=== PATIENT | female | born 1945 | race Caucasian/White ===

== ENCOUNTER 2018-08-19 11:01 | Inpatient (IN) ==
--- NOTE | 2018-08-19 11:43 | Diag Imaging Result Doc PS360 ---
EXAM: CHEST-1 VIEW HISTORY: junctional rhythm TECHNIQUE: Single view COMPARISON: None 05/17/2016 FINDINGS: The lungs are well expanded. The heart is mildly prominent. The vessels are not distended. There are no infiltrates. No effusion identified. IMPRESSION: Mildly prominent heart, otherwise negative exam Electronically signed by Abdiaziz Cantor 08/19/2018 11:41 AM
[2018-08-19 11:58] LABS: BASO# 0.08 X1000 (0.0-0.2); BASO% 0.7 % (0.0-0.8); EOS# 0.07 X1000 (0.0-0.7); EOS% 0.6 % (0.0-10.0); HEMATOCRIT 38.2 % (37.0-47.0); IMM GRAN# 0.06 X1000 (0.0-0.04); IMM GRAN% 0.5 % (0.0-0.5); LYMPH# 2.49 X1000 (1.2-3.4); LYMPH% 21.9 % (20.5-51.1); MCH 27.7 PG (27-31); MCHC 31.4 g/dL (33-37); MCV 88.2 FL (81-99); MONO# 0.43 X1000 (0.11-0.59); MONO% 3.8 % (1.7-9.3); MPV 10.8 FL (7.4-10.4); NEUT# 8.25 X1000 (1.4-6.5); NEUT% 72.5 % (42.2-75.2); PLT 249 X1000 (130-400); RBC 4.33 XMIL (4.2-5.4); RDW 16.7 % (11.5-14.5); WBC 11.38 X1000 (4.8-10.8)
[2018-08-19 12:02] LABS: INR 1.88; PROTIME 23.1 Seconds (11.0-16.0)
[2018-08-19 12:23] LABS: ALB/GLOB RATIO 1.2; ALBUMIN 3.5 g/dL (3.5-5.0); CREATININE 1.1 mg/dL (0.5-0.9); MAGNESIUM 1.8 mg/dL (1.5-2.7); POTASSIUM 4.4 mmol/L (3.5-5.1); TOTAL BILIRUBIN 0.34 mg/dL (0.20-1.00); TOTAL PROTEIN 6.4 g/dL (6.3-8.3)
[2018-08-19] MEDS ORDERED: ZOFRAN IV PRN (13:04)
[2018-08-19 13:33] LABS: T4 6.15 ug/dL (4.60-12.00); TSH 2.24 uIUmL (0.27-4.20)
[2018-08-19] MEDS: NS 1,000 ML IV SCH (15:56)
[2018-08-19 16:25] LABS: HEMOGLOBIN A1C 6.6 % (4.8-6.0)
[2018-08-19 16:40] LABS: URINE SOURCE CLEAN CATCH
[2018-08-19 16:48] LABS: BILIRUBIN URINE NEGATIVE (NEGATIVE); BLOOD URINE NEGATIVE (NEGATIVE); COLOR YELLOW; GLUCOSE URINE NEGATIVE (NEGATIVE); KETONE URINE NEGATIVE (NEGATIVE); LEUKOCYTES URINE SMALL (NEGATIVE); NITRITE URINE NEGATIVE (NEGATIVE); PH URINE 5.5; PROTEIN URINE NEGATIVE (NEGATIVE); SP GRAVITY URINE 1.002; TURBIDITY URINE CLEAR (CLEAR); UR EPITHELIAL CELLS <10 /HPF (<10); URINE BACTERIA 1+ /HPF; URINE RBC <10 /HPF (<10); URINE WBC <10 /HPF (<10); UROBILINOGEN URINE NORMAL (NORMAL)
[2018-08-19] MEDS: MIRAPEX PO SCH (16:48)
--- NOTE | 2018-08-19 18:53 | HISTORY AND PHYSICAL ---
PRIMARY CARE PROVIDER: Dr. Benitez. PRIMARY CONCRETE STONE FABRICATING SUPERVISOR: Dr. Stewart. CHIEF COMPLAINT: Near syncopal or nearly passing out spells. HISTORY OF PRESENT ILLNESS: Ms. Nimo Daigle is a 72-year-old, female with a medical history of A-fib and flutter since 2013 who apparently has been having some light-headed, dizzy, nearly passing out spells where she has to sit on the floor. Her last one was last Tuesday, so on Tuesday she was placed on a portable telemetry or Holter monitor by Dr. Stewart. This past Tuesday, she was called and told to stop her digoxin, that her heart rate was slowing down and if her heart rate dropped to less than 40 and maintained at this, to go to the Emergency Department. So she presented today with a heart rate in the 30s and apparently 20s as well, but she was continuing to take her Toprol 100 mg p.o. daily. Blood pressure is stable. We are going to put her on telemetry, hold the Toprol for now. We are also going to hold her flecainide and transfer her to [facility] and consult Dr. Stewart, her appraiser timber. PAST MEDICAL HISTORY: 1. Fibromyalgia. 2. History of right breast cancer and double mastectomy. 3. Wellington's esophagus. 4. Esophageal stricture with dilatation. 5. GERD. 6. Hypertension. 7. Obstructive sleep apnea with CPAP and 2 liters of oxygen at night. 8. Arthritis. 9. Restless leg syndrome. 10.Hyperlipidemia. 11.Diabetes mellitus type 2. 12.Leukemia; only takes a pill for that. Dr. Wadsworth from [facility] in [place] follows her for that. She states no chemotherapy, no radiation. 13.Atrial fibrillation and flutter since 2013. PAST SURGICAL HISTORY: 1. Esophageal dilatation. 2. Bilateral mastectomies. 3. Hysterectomy. 4. Right knee total knee replacement. 5. Left knee partial knee replacement. SOCIAL HISTORY: Denies alcohol, tobacco or illicit drug use. FAMILY HISTORY: Mother had an unknown cancer. Father had coronary disease and stroke. ALLERGIES: Glucocorticoids, influenza vaccine, sulfa drugs and antibiotics. HOME MEDICATIONS: 1. Coumadin 2.5 mg p.o. nightly. 2. Pravastatin 40 mg p.o. nightly. 3. Calcium 1200 mg with vitamin D3, one tab p.o. daily. 4. Cymbalta 90 mg p.o. daily. 5. Glimepiride 2 mg p.o. daily. 6. Letrozole 2.5 mg p.o. daily. 7. Lyrica 225 mg p.o. twice daily. 8. Pramipexole 1 mg p.o. t.i.d. 9. Flecainide 150 mg p.o. twice daily. 10.Toprol XL 100 mg p.o. daily. REVIEW OF SYSTEMS: A 14-point review of systems are completed and all are negative except as mentioned above in HPI. She has complained of some lower extremity swelling, chest heaviness, feeling weaker but denies fever or chills, nausea, vomiting or diarrhea. PHYSICAL EXAMINATION: VITAL SIGNS: Temperature 97.5 degrees, heart rate 49 but when I looked at it on the monitor, it was around 99 and low 100s. Respiratory rate 20, blood pressure 153/63, oxygen saturation 97%. She had orthostatic vitals performed: supine heart rate 49, blood pressure 153/63; sitting heart rate 40, blood pressure 139/74; and standing heart rate 64 and blood pressure 133/92. GENERAL: Ms. Nimo Daigle is a 72-year-old female. She is in no acute distress. She is able to answer questions appropriately. HEENT: Atraumatic, normocephalic. Pupils equal, round and reactive to light. Extraocular movements intact. Mucous membranes are dry. NECK: Trachea is midline. CARDIOVASCULAR: Irregularly irregular. At the time of assessment, it was tachycardic most likely keep documenting a bradycardic rhythm or rate. No lower extremity edema. There are +2 dorsalis pedis and radial pulses. Negative for JVD or carotid bruits. PULMONARY: Clear to auscultate. Bilateral breath sounds. No accessory muscle use or work of breathing noted. GI: Soft, nontender, nondistended. Positive bowel sounds x 4. EXTREMITIES: Moves all extremities equally. Full range of motion. NEUROLOGICAL: Alert and oriented x 3. Follows commands. Sensory is intact. SKIN: Warm, dry and intact. LABORATORY DATA: White blood cell count 11,000, hemoglobin 12, hematocrit 38, platelet count 249. INR is 1.88. Sodium 145, potassium 4.4, BUN 14, creatinine 1.1, glucose 247, then point of care glucose was 63. Hemoglobin A1C has been ordered. Calcium 9.0, magnesium 1.8, total bilirubin 0.34, AST 27, ALT 19. Troponin less than 0.01. CRP is 29.86. ProBNP is 4304. Albumin 3.4. TSH 2.24, T4 is 6.15. Digoxin level is 0.6. IMAGING: Chest x-ray: Mildly prominent heart, otherwise negative exam. EKG has not crossed over into the computer yet; it was reported as a junctional rhythm. We will have to review that. ASSESSMENT AND PLAN: 1. Atrial fibrillation with bradycardic rate, possibly junctional rhythm, but on the telemetry, the rhythm pulled up and the rate was 90 to low 100s and still irregular with A-fib. Blood pressure is stable with it. Apparently she was on digoxin but had to stop that last Tuesday. We will hold her Toprol for now and hold flecainide for now. Dr. Stewart, her appraiser timber, has been consulted. 2. Diabetes mellitus type 2. We will do patterned blood glucoses and give sliding-scale insulin. She is only on oral medications. We will get a hemoglobin A1C. 3. She states she has a history of leukemia and is followed by Dr. Wadsworth at [facility] in [place]. She says she takes a pill for it. I am not sure what the medication is though, because I do not think it is listed on her medication list. 4. Obstructive sleep apnea, on CPAP at home. She can continue that. She also uses 2 liters of oxygen with it. 5. Elevated ProBNP. She actually complains of swelling in the lower extremities but she does not show any there. She also does not show any obvious jugular venous distention. We will get an echocardiogram just to evaluate her heart function. Her last echocardiogram was in 2017 in our system and she had some borderline pulmonary hypertension with a systolic of 33 mmHg. There was no diastolic dysfunction. She had great left ventricular systolic function at that time. 6. Hypertension. She is stable on her blood pressure at this time. We will have to monitor her blood pressure for now along with heart rate flow. 7. DVT prophylaxis. She takes Coumadin; we will resume that. Dictated by ADRIENNE Riddle for MD Abel Mccullough#: [id number] cc: ADRIENNE Riddle MD [facility]
[2018-08-19] MEDS: PRAVACHOL PO SCH (20:12)
[2018-08-19] MEDS: COUMADIN PO SCH (20:12)
[2018-08-19] MEDS: LYRICA PO SCH (20:12)
[2018-08-19] MEDS: HUMULIN R SUBQ SCH (20:21)
--- NOTE | 2018-08-20 00:23 | HISTORY AND PHYSICAL ---
ADDENDUM: Ms. Daigle presented to the emergency department today after she was notified by her cardiac monitoring services that her blood pressures have been remarkably low from the beginning of the week. She was told to discontinue the digoxin. Later on also was told to stop taking the metoprolol because her pulse was somewhere around in the 20. Ms Daigle refers that for the past week she has been having near syncopal episode. A week ago she did have 1 syncopal episode where she fell down, lost some consciousness but that was quite immediate. The narration of the syncope seems to have some premonition symptoms including generalized weakness, whooshing of the head with dizziness, tunnel vision and she has to go and sit down otherwise she will blackout. Her physical exams reveal the blood pressure was 127/63, pulse was 49, respiration was 18, patient was saturating about 96%. She looks remarkably dry and her heart rate seems to be regular but with occasional extrasystolic beats. EKG on admission did show a junctional rhythm with a rate of about 43, a repeat continues to show junctional rhythm but with PACs and PVCs. A chest x-ray showed prominent heart otherwise negative, vessels are not distended. ASSESSMENT: 1. Syncopal episode with multiple other near syncopal episodes. I think this is probably related to orthostatic hypotension with cardioinhibitory response which has been probably compounded by the fact that she is on AV rosio blocking agents. Cardiac syncope is also a possibility due to her hx of cardiac arrhythmias. Cardiac medications have been withheld. We are going to check patient's orthostatic vitals and hydrate her gently over the overnight and reevaluate her hydration status. 2. Clinical volume depletion see #1. 3. Acute kidney injury secondary to volume depletion. 4. History of atrial fibrillation. The patient is on metoprolol, digoxin and flecainide at home. These have been withheld for now due to severe bradycardia. 5. Diabetes mellitus. Will use insulin regimen during the hospital course. 6. Restless legs syndrome on pramipexole. 7. Situational anxiety and depression disorder, patient is on Cymbalta. 8. History of obstructive sleep apnea. Patient is on CPAP at home. We have encouraged her to bring it into the hospital. Please refer to the details of H and P dictated in the notes by the nurse practitioner. Will also be pending further recommendations from Cardiology. cc: Dinesh Matias MD MTDD
[2018-08-20] MEDS: NS 1,000 ML IV SCH ×2 (05:12→17:42)
[2018-08-20 06:30] LABS: BASO# 0.04 X1000 (0.0-0.2); BASO% 0.4 % (0.0-0.8); EOS# 0.17 X1000 (0.0-0.7); EOS% 1.5 % (0.0-10.0); HEMATOCRIT 37.4 % (37.0-47.0); HEMOGLOBIN 11.8 g/dL (12.0-16.0); IMM GRAN# 0.05 X1000 (0.0-0.04); IMM GRAN% 0.4 % (0.0-0.5); LYMPH# 3.24 X1000 (1.2-3.4); LYMPH% 28.7 % (20.5-51.1); MCHC 31.6 g/dL (33-37); MCV 88.8 FL (81-99); MONO# 0.69 X1000 (0.11-0.59); MONO% 6.1 % (1.7-9.3); MPV 10.5 FL (7.4-10.4); NEUT% 62.9 % (42.2-75.2); PLT 257 X1000 (130-400); RBC 4.21 XMIL (4.2-5.4); RDW 16.6 % (11.5-14.5); WBC 11.29 X1000 (4.8-10.8)
[2018-08-20 06:41] LABS: INR 1.68; PROTIME 21.1 Seconds (11.0-16.0); PTT 36.2 Seconds (22.3-41.8)
[2018-08-20] MEDS: HUMULIN R SUBQ SCH ×4 (06:41→20:30)
[2018-08-20 07:32] LABS: AGAP 12; ALB/GLOB RATIO 1.5; ALBUMIN 3.8 g/dL (3.5-5.0); ALKALINE PHOSPHATASE 89 U/L (32-104); BUN 12 mg/dL (8-22); CALCIUM 8.7 mg/dL (8.8-10.2); CHLORIDE 105 mmol/L (98-107); CK TOTAL 55 U/L (24-173); COSMO 280; CREATININE 0.9 mg/dL (0.5-0.9); ESTIMATED GFR > 60; GLUCOSE 87 mg/dL (70-104); GOT 22 U/L (10-30); GPT 16 U/L (10-36); MAGNESIUM 1.7 mg/dL (1.5-2.7); SODIUM 141 mmol/L (136-145); TCO2 24 mmol/L (25-35); TOTAL BILIRUBIN 0.67 mg/dL (0.20-1.00); TOTAL PROTEIN 6.4 g/dL (6.3-8.3)
[2018-08-20] MEDS: CALTRATE 600 + D PO SCH (08:04)
[2018-08-20] MEDS: MIRAPEX PO SCH ×3 (08:05→16:21)
[2018-08-20] MEDS: LYRICA PO SCH ×2 (08:05→20:31)
[2018-08-20] MEDS: CYMBALTA PO SCH (08:05)
[2018-08-20] MEDS: TYLENOL PO PRN (08:05)
[2018-08-20] MEDS: TAMBOCOR PO SCH ×2 (08:40→20:19)
[2018-08-20] MEDS: LOPRESSOR PO SCH ×2 (08:40→16:21)
--- NOTE | 2018-08-20 14:22 | CARDIOLOGY CONSULTATION ---
DATE: 08/20/2018 CONSULTATION REQUESTED BY: Hospitalist service. REASON FOR CONSULTATION: The reason is near-syncope, bradycardia. HISTORY: Ms. Daigle is a very pleasant, 72-year-old, female, patient of mine. The patient presented to the emergency room yesterday around morning hours, I believe 11 o'clock in the morning, complaining of several days of feeling tired and weak, getting dizzy, listless, and to the point of nearly fainting and going down on the floor. The patient, upon presentation, was found to be bradycardic. Electrocardiogram showed a junctional rhythm with supraventricular bigeminy as well as frequent premature ventricular contractions (PVCs). She was actually in junctional bradycardia at 11 a.m. The patient was admitted for observation. Her medications including beta maira and flecainide have been put on hold. This morning, I am seeing her at 8:15 in the morning, August 20. The patient is feeling better. Her electrocardiogram has reverted back to sinus rhythm, sinus mechanism. Her EKG this morning shows sinus rhythm with a CO interval of 292 milliseconds, a QTc of 437 milliseconds. There is no ischemic abnormality on the EKG. She is feeling better, eating her breakfast. Her is at the bedside. PAST MEDICAL HISTORY: Positive for paroxysmal atrial fibrillation. We saw her at the office on July 06. At that time, we found her in atrial flutter. We had put her on flecainide with beta blockers to try to control this arrhythmia. The patient has hypertension. She has osteoarthritis. She has chronic lymphocytic leukemia and is being followed by Dr. Shabazz at [facility] in [place]. She has had breast cancer in the past. She has a history of sleep apnea syndrome and fibromyalgia. SURGICAL HISTORY: Includes knee replacement in September 2013, hysterectomy, double mastectomy. SOCIAL HISTORY: She is . She has 2 children. She is not a smoker. FAMILY HISTORY: Father had coronary heart disease. Mother needed a pacemaker. She had atrial fibrillation. HOME MEDICATIONS: At the time of this admission included duloxetine 90 mg daily, flecainide 150 twice a day, glimepiride 2 mg daily, metoprolol succinate 100 mg daily, pravastatin 40 at bedtime, pregabalin 225 twice a day, warfarin 2.5 at bedtime, letrozole 2.5 mg daily, calcium 1200 mg daily, pramipexole 1 mg 3 times a day. She is also on pravastatin 40 at bedtime. REVIEW OF SYSTEMS: Lately, just feeling weak, tired, near syncopal. No other positives. She has a history of Wellington's esophagus. PHYSICAL EXAMINATION: This morning, blood pressure is 135/51, temperature is 97.4 degrees, her pulse rate 55 bpm respirations 18. She is awake, alert, in no distress. HEENT: Normal. Chest: Clear to auscultation and percussion. Heart sounds have regular rhythm. I do not hear a gallop or murmur. Her abdomen is nontender. Extremities showed good pulses. No peripheral edema. Neurological Examination: Follows commands. Moves 4 extremities. LABORATORY DATA: Blood work: Sodium 141, potassium 4.0, BUN 12, creatinine 0.9. Troponin levels have been checked twice and they are negative. Pro BNP was 4304 pg/ml at the time of initial encounter. A chest x-ray was done. Initially shows mildly prominent heart, otherwise negative. IMPRESSION: 1. Patient presenting with junctional bradycardia, symptomatic. She has had atrial flutter, paroxysmal. 2. History of hypertension. 3. History of hyperlipidemia. 4. Chronic lymphocytic leukemia, stable. 5. History of breast cancer, status post mastectomy. 6. Osteoarthritis. 7. History of sleep apnea syndrome. RECOMMENDATIONS: At this time, we will minimize the beta maira and the flecainide. 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 We had discontinued digoxin a few days ago. Her level at the time of encounter was 0.6 ng/mL which is really low and should not explain her bradycardia. The patient will be referred to the [facility] for pacemaker implantation. Until then, I am going to keep her in the hospital for another 24 to 48 hours to make sure that we have her on a stable regimen to prevent recurrence of flutter or fibrillation. cc: Bryan Stewart MD [facility]
--- NOTE | 2018-08-20 15:11 | PROGRESS NOTE ---
DATE: 08/20/2018 SUBJECTIVE: This morning Ms. Daigle refers to be feeling a whole lot better. She said she has not felt like this in a very long time. She has been up to use the restroom. She did not feel any dizziness and she did not feel like she was going to black out either. OBJECTIVE: Vital signs: Blood pressure is 135/51, pulse of 52, respiration is 18, temperature 97.5 degrees. Patient is saturating 97% on room air. General: Ms. Daigle is a 72-year-old female. She is in bed, no distress. HEENT: Mucosa is slightly dry. Anicteric. Acyanotic. Neck: Supple. Chest: Good air entry bilaterally. No crepitations. No rhonchi. Cardiovascular: Slightly bradycardic but no murmurs, no rubs, no gallops. GI: Abdomen is soft, nontender. Bowel sounds present. Extremities: No pedal edema. PLATFORM ARCHITECT: Patient is awake, alert, and oriented. LABORATORY DATA: Has been reviewed. CBC is unremarkable. Chemistry: Creatinine has normalized. ASSESSMENT: 1. Recurrent syncope and near syncopal episodes. 2. Tachybrady syndrome, likely secondary to sick sinus syndrome. Patient has been evaluated by Cardiology. There is a plan for her to go to [place] on Tuesday for pacemaker evaluation. 3. Clinical volume depletion. Will continue with gentle IV fluids. The patient's hydration status has significantly improved. 4. Acute kidney injury secondary to volume depletion, resolved. 5. Diabetes mellitus, controlled. 6. History of atrial fibrillation, stable. The patient was actually severely bradycardic on presentation. AV rosio blocking agents have been withheld. So is flecainide withheld. However, this morning cardiology plans to resume some of them. 7. Restless leg syndrome. Patient is on pramipexole. 8. History of obstructive sleep apnea. PLAN: So in general Ms. Daigle came to the emergency department mainly because of syncopal and near syncopal episode, which we think is a combination of tachybrady syndrome (sick sinus syndrome) which has been worsened by the fact that the patient was on AV blocking agents and also was very dehydrated. Hydration status seems to be improving. Creatinine has normalized. We will continue with gentle hydration. The patient is pending arrangements with [facility] in [place] for pacemaker arrangement. Dr. Stewart is on board and will follow up with her. cc: Dinesh Matias MD
[2018-08-20] MEDS: COUMADIN PO SCH (20:31)
[2018-08-20] MEDS: PRAVACHOL PO SCH (20:31)
[2018-08-21] MEDS: LOPRESSOR PO SCH ×3 (01:02→16:39)
[2018-08-21] MEDS: TYLENOL PO PRN ×2 (04:40→22:55)
[2018-08-21 05:52] LABS: INR 1.9; PROTIME 23.2 Seconds (11.0-16.0)
[2018-08-21] MEDS: HUMULIN R SUBQ SCH ×4 (06:13→20:47)
--- NOTE | 2018-08-21 08:10 | EKG Report ---
Test Performed on : 08/21/2018 07:28:32 AM Test Reason : BRADYCARDIA/SICK SINUS RHYTHM Blood Pressure : / mmHG Vent. Rate : 060 BPM Atrial Rate : 060 BPM P-R Int : 248 ms QRS Dur : 104 ms QT Int : 456 ms P-R-T Axes : 048 065 079 degrees QTc Int : 456 ms Sinus rhythm. with 1st degree AV block. Cannot rule out Anterior infarct , age undetermined Abnormal ECG When compared with ECG of 20-AUG-2018 06:21, (Unconfirmed) ST no longer depressed in Lateral leads Confirmed by Rodri ISRAEL, Prateek Barrera ([id number]) on 08/22/2018 12:42:04 PM
[2018-08-21] MEDS: LYRICA PO SCH ×2 (08:52→21:45)
[2018-08-21] MEDS: MIRAPEX PO SCH ×3 (08:52→16:38)
[2018-08-21] MEDS: CALTRATE 600 + D PO SCH (08:52)
[2018-08-21] MEDS: NS 1,000 ML IV SCH (08:52)
[2018-08-21] MEDS: CYMBALTA PO SCH (08:52)
--- NOTE | 2018-08-21 09:22 | ECHO REPORT ---
ORDER DATE: 08/19/2018 INTERPRETING PHYSICIAN: Dr. Stewart REQUESTING PHYSICIAN: CLINICAL INDICATIONS: This is a 72-year-old female with syncope, sick sinus syndrome. M-MODE MEASUREMENTS: Right ventricle: cm. Left ventricle end diastole: 3.7 cm. Left ventricle end systole: 2.6 cm. Posterior wall: 1.0 cm. Interventricular septum: 1.1 cm. Left atrium: 4.1 cm. Aortic root: 2.9 cm. SUMMARY OF 2-DIMENSIONAL IMAGIN. Optison was added to optimize visualization of endocardium. 2. The left ventricle shows normal function. Ejection fraction is 64%. The chamber is mildly enlarged. 3. Left atrium and right atrium are moderately enlarged. 4. Aortic valve looks normal. Color flow mapping is unremarkable. 5. The mitral valve looks normal. Color flow mapping indicates mild degree of regurgitation. 6. Pulse wave Doppler of mitral inflow is normal. 7. The tissue Doppler of septal and lateral mitral annulus averages 6 cm. 8. Pulmonary venous flow shows normal pattern. 9. The left atrial pressure may be slightly elevated. 10.Pulmonic valve was normal with mild regurgitation. 11.The tricuspid valve shows mild degree of regurgitation. 12.Pulmonary pressure estimated at 49 to 54 mmHg. CONCLUSIONS: In summary, this study shows: 1. Normal left ventricular systolic function. 2. Biatrial enlargement of moderate degree. 3. No diastolic dysfunction. Question of elevation of left atrial pressure. 4. Pulmonary systolic pressure estimated at 49 to 54 mmHg. Clinical correlation recommended. cc: MD Bertha Wells CRNP
[2018-08-21] MEDS: AMPICILLIN PO SCH ×2 (09:24→16:38)
--- NOTE | 2018-08-21 10:19 | CARDIOLOGY PROGRESS NOTE ---
DATE: 08/21/2018 CHIEF COMPLAINT: Weakness, near syncope. SUBJECTIVE: Ms. Daigle is doing better. Her telemetry indicates that she is in sinus rhythm. She has not had any AV block or any severe bradycardia. She has been going to the bathroom quite often. Of note, her urinalysis is growing Enterococcus faecalis today and is sensitive to all antibiotics including ampicillin, Levaquin, penicillin, etc. The patient denies chest pain or dyspnea. OBJECTIVE: Blood pressure is 135/59, temperature 97.6, pulse 58, respirations 17. She is awake, alert and oriented, no distress. HEENT is unremarkable. Chest sounds clear to auscultation and percussion. Heart sounds regular and rhythmic. No gallop or murmur. Her abdomen is nontender, soft. No masses or hepatomegaly. Extremities showed good pulses, no peripheral edema. Neurologic: Follows commands, moves all 4 extremities. DIAGNOSTIC DATA: Hemoglobin is 11.8, hematocrit 37.4. Sodium is 141, potassium 4.0, BUN is 12, creatinine 0.9. Troponin levels checked several times, negative. IMPRESSION: 1. The patient presented with near syncope and significant bradycardia, junctional. She had been in atrial flutter before. 2. Hypertension. 3. Hyperlipidemia. 4. Chronic lymphocytic leukemia, stable. 5. Urinary tract infection, Enterococcus faecalis, sensitive to ampicillin. 6. Breast cancer, history of, status post mastectomy. 7. History of sleep apnea syndrome. RECOMMENDATIONS: At this time, we will continue with low dose flecainide 50 twice a day and metoprolol 12.5 every 8 hours. I want to monitor her one more day. If stable, she can go home tomorrow, and we will arrange for Electrophysiology to see her electively. Because of urinary tract infection due to Enterococcus, I do not believe we could give her a pacemaker in the next 2 days. We will have to wait until her urine is stabilized. I will do a followup EKG in the morning. cc: Bryan Stewart MD
[2018-08-21] MEDS: TAMBOCOR PO SCH ×2 (12:21→21:40)
--- NOTE | 2018-08-21 12:48 | PROGRESS NOTE ---
DATE: 08/21/2018 SUBJECTIVE: The patient is looking well. No major complaints. OBJECTIVE: Vital Signs: Blood pressure is 131/54, heart rate 60, respiratory rate of 15, temperature 97.6 degrees,98% on room air. Cardiovascular: Regular rate and rhythm. Pulmonary: Bilateral breath sounds clear to auscultation. GI: Soft, nontender, nondistended. Bowel sounds are positive. LABORATORY DATA: I do not have any new data today. Her INR is 1.9. Labs yesterday did not look too bad. PROBLEM LIST: 1. Recurrent syncope, likely related to tachycardia bradycardia syndrome, sick sinus syndrome. Plan was for pacemaker evaluation on Tuesday, but Dr. Stewart feels that she has a urinary tract infection and that will preclude that. 2. Enterococcus positive urine culture. At this point, she does report some urinary frequency. I do not get a sense that that is a big change from baseline and she has been getting IV fluids. She denies dysuria. She denies suprapubic pain. She denies back pain. At this point, I would consider this borderline asymptomatic bacteriuria, which current guidelines recommend we do not treat those. However, Dr. Stewart has started amoxicillin for a urinary tract infection and is recommending that we forestall pacemaker placement. That will be at his discretion of course, and Dr. Matias's tomorrow. 3. Acute kidney injury is stable. 4. Diabetes is controlled currently. 5. Atrial fibrillation. Again, the patient is on adjusted medications, metoprolol. DISPOSITION: It has been described that she could possibly go home tomorrow, not today. I think we can probably stop her fluids and see how she does. I guess we will just need to make sure she has close follow up with Cardiology for evaluation for her pacemaker. cc: Jose Krishnamurthy MD
[2018-08-21] MEDS: COUMADIN PO SCH (21:45)
[2018-08-21] MEDS: PRAVACHOL PO SCH (21:45)
[2018-08-22] MEDS: AMPICILLIN PO SCH ×2 (01:04→09:25)
[2018-08-22] MEDS: LOPRESSOR PO SCH (01:10)
[2018-08-22 05:40] LABS: BASO# 0.07 X1000 (0.0-0.2); BASO% 0.7 % (0.0-0.8); EOS# 0.29 X1000 (0.0-0.7); EOS% 2.9 % (0.0-10.0); HEMATOCRIT 35.6 % (37.0-47.0); HEMOGLOBIN 11.3 g/dL (12.0-16.0); IMM GRAN# 0.03 X1000 (0.0-0.04); IMM GRAN% 0.3 % (0.0-0.5); LYMPH# 2.96 X1000 (1.2-3.4); LYMPH% 29.2 % (20.5-51.1); MCH 27.8 PG (27-31); MCHC 31.7 g/dL (33-37); MCV 87.7 FL (81-99); MONO# 0.67 X1000 (0.11-0.59); MONO% 6.6 % (1.7-9.3); MPV 10.3 FL (7.4-10.4); NEUT# 6.13 X1000 (1.4-6.5); NEUT% 60.3 % (42.2-75.2); PLT 245 X1000 (130-400); RBC 4.06 XMIL (4.2-5.4); RDW 16.2 % (11.5-14.5); WBC 10.15 X1000 (4.8-10.8)
[2018-08-22 06:14] LABS: INR 1.86; PROTIME 22.8 Seconds (11.0-16.0)
[2018-08-22 06:29] LABS: AGAP 9; BUN 8 mg/dL (8-22); CALCIUM 8.3 mg/dL (8.8-10.2); CHLORIDE 106 mmol/L (98-107); COSMO 284; CREATININE 0.8 mg/dL (0.5-0.9); ESTIMATED GFR > 60; GLUCOSE 119 mg/dL (70-104); POTASSIUM 3.9 mmol/L (3.5-5.1); SODIUM 143 mmol/L (136-145); TCO2 28 mmol/L (25-35)
[2018-08-22] MEDS: HUMULIN R SUBQ SCH (06:40)
--- NOTE | 2018-08-22 07:26 | EKG Report ---
Test Performed on : 08/22/2018 06:51:06 AM Test Reason : BRADYCARDIA/SICK SINUS RHYTHM Blood Pressure : / mmHG Vent. Rate : 058 BPM Atrial Rate : 058 BPM P-R Int : 234 ms QRS Dur : 102 ms QT Int : 460 ms P-R-T Axes : 046 067 072 degrees QTc Int : 451 ms Sinus bradycardia. with 1st degree AV block. Possible Left atrial enlargement Borderline ECG When compared with ECG of 21-AUG-2018 07:28, (Unconfirmed) No significant change was found Confirmed by Rodri ISRAEL, Prateek Barrera ([id number]) on 08/22/2018 12:42:56 PM
--- NOTE | 2018-08-22 07:34 | EKG Report ---
Test Performed on : 08/20/2018 06:21:28 AM Test Reason : bradycardia Blood Pressure : / mmHG Vent. Rate : 053 BPM Atrial Rate : 053 BPM P-R Int : 292 ms QRS Dur : 090 ms QT Int : 466 ms P-R-T Axes : 036 081 105 degrees QTc Int : 437 ms Sinus bradycardia. with 1st degree AV block. Possible Left atrial enlargement ST elevation, consider inferior injury or acute infarct ACUTE CO / STEMI Consider right ventricular involvement in acute inferior infarct Abnormal ECG When compared with ECG of 19-AUG-2018 13:08, (Unconfirmed) Sinus rhythm. has replaced Junctional rhythm. Confirmed by Rodri ISRAEL, Prateek Barrera ([id number]) on 08/22/2018 12:41:38 PM
[2018-08-22 07:36] VITALS: BP 131/59
--- NOTE | 2018-08-22 07:43 | EKG Report ---
Test Performed on : 08/19/2018 1:08:35 PM Test Reason : symptomatic bradycardia Blood Pressure : / mmHG Vent. Rate : 048 BPM Atrial Rate : 044 BPM P-R Int : 000 ms QRS Dur : 118 ms QT Int : 492 ms P-R-T Axes : 000 073 084 degrees QTc Int : 439 ms Junctional rhythm. with premature supraventricular complexes. and with occasional premature ventricul ar complexes. Nonspecific intraventricular conduction delay Abnormal ECG When compared with ECG of 19-AUG-2018 11:06, (Unconfirmed) premature ventricular complexes. are now present premature supraventricular complexes. are now present Unconfirmed Result
[2018-08-22] MEDS ORDERED: LOPRESSOR PO SCH (08:00)
--- NOTE | 2018-08-22 08:21 | CARDIOLOGY PROGRESS NOTE ---
DATE: 08/22/2018 CHIEF COMPLAINT: Near syncope, irregular heartbeat. SUBJECTIVE: Mrs. Daigle is feeling better. Her telemetry shows no abnormalities. She has not had any fever. OBJECTIVE: Vital signs: Her vital signs this morning, blood pressure is 131/59, temperature 97.3, pulse 62, respirations 18. General: The patient is awake, alert, in no distress. HEENT: Unremarkable. Chest: Clear to auscultation and percussion. Heart: Sounds are regular and rhythmic. No gallop or murmur. Abdomen: Nontender. Extremities: No edema. Neurologic exam: Follows commands, moves all 4 extremities. BLOOD WORK: This morning shows a white count of 10,150, hemoglobin 11.3. PT is 22.8. INR 1.86. Sodium 143, potassium 3.9, BUN 8, creatinine 0.8. Her urinalysis as I said yesterday showed Enterococcus faecalis sensitive to all antibiotics including ampicillin. Telemetry shows no more arrhythmia. IMPRESSION: 1. Patient who presented with near syncope, symptomatic bradycardia. 2. Chronic lymphocytic leukemia. 3. Urinary tract infection. 4. History of hypertension. 5. Paroxysmal atrial flutter. RECOMMENDATIONS: At this time, we are going to let the patient go home because she is stable on a modified dose of flecainide 50 mg twice a day plus metoprolol 25 mg twice a day, this is metoprolol tartrate. She will also go on ampicillin 500 mg every 8 hours for the next 4 days. She will have a followup urine culture 3 days after finishing the antibiotics and we are going to make a referral to the Electrophysiology service for permanent pacemaker implantation. Further advice will be forthcoming. cc: Bryan Stewart MD
--- NOTE | 2018-08-22 08:49 | EKG Report ---
Test Performed on : 08/19/2018 11:06:50 AM Test Reason : ED. NO EKG ORDER FOR MUSE Blood Pressure : / mmHG Vent. Rate : 049 BPM Atrial Rate : 039 BPM P-R Int : 000 ms QRS Dur : 108 ms QT Int : 498 ms P-R-T Axes : 000 082 082 degrees QTc Int : 449 ms Junctional rhythm. Nonspecific ST abnormality Abnormal ECG When compared with ECG of 01-DEC-2016 13:16, Junctional rhythm. has replaced Sinus rhythm. Vent. rate has decreased BY 90 BPM QRS duration has increased ST no longer depressed in Anterior leads T wave inversion no longer evident in Inferior leads T wave inversion no longer evident in Lateral leads Unconfirmed Result
[2018-08-22] MEDS: CALTRATE 600 + D PO SCH (09:25)
[2018-08-22] MEDS: CYMBALTA PO SCH (09:26)
[2018-08-22] MEDS: MIRAPEX PO SCH (09:33)
[2018-08-22] MEDS: TAMBOCOR PO SCH (09:37)
[2018-08-22] MEDS: LYRICA PO SCH (10:05)
--- NOTE | 2018-08-22 12:39 | DISCHARGE SUMMARY ---
ADMISSION DATE: 08/19/2018 DISCHARGE DATE: 08/22/2018 PRIMARY CARE PROVIDER: Tam Benitez MD. CONSULTATIONS: Dr. Stewart of Cardiology. PERTINENT PROCEDURES: 1. Echocardiogram showed normal LV function. No diastolic dysfunction. Pulmonary systolic pressure of 49 to 50 mmHg. 2. Initial EKG junctional rhythm with nonspecific ST abnormality 49 beats per minute. 3. Final EKG showed sinus bradycardia with first-degree AV block at 58 beats per minute. DISCHARGE DIAGNOSES: 1. 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 Initial plan was to have the patient set up for pacemaker placement today. However, the patient has a urinary tract infection. Will preclude that, so the patient will be sent home on 4 more days of p.o. antibiotics and repeat urine culture. Cardiology will set up for evaluation with EP at [place]. She is stable on current medications. 2. Enterococcus positive urine culture. The patient has reported urinary frequency, and will continue on p.o. antibiotics. 3. Acute kidney injury now stable. 4. Diabetes mellitus controlled. 5. Atrial fibrillation. Again, patient's medications have been adjusted. She will continue on metoprolol per cardiology's recommendations. 6. Clinical volume depletion, resolved. 7. Restless leg syndrome. 8. Situational anxiety and depression disorder on Cymbalta. 9. History of obstructive sleep apnea uses CPAP at home. HOSPITAL COURSE: Briefly, Ms. Daigle is a 72-year-old female with a history of atrial fibrillation and flutter since 2013, right breast cancer, Wellington's esophagus, esophageal stricture with dilatation, GERD, hypertension, obstructive sleep apnea with CPAP and 2 L of oxygen at night, restless leg syndrome, and diabetes mellitus, who presented to the ED after having some lightheaded, dizzy spells, nearly passing out spells where she has to sit on the floor. She has been placed on a portable telemetry by Dr. Stewart. She was called and told to stop her digoxin, and that her heart rate was slowing down and if it continued to drop less than 40 beats per minute and maintained this she was to go to the ED. She had heart rates in the 30s and 20s, and was continuing to take her Toprol daily. Her blood pressure was stable. She was admitted to [facility], and placed on telemetry. She held her Toprol as well as her flecainide. She did have a repeat echocardiogram and was followed by Dr. Stewart. She was initiated back on some of her rate control medications per Dr. Stewart with flecainide 50 mg twice a day plus metoprolol tartrate 25 mg twice a day. There was some question of a urinary tract infection. The patient was complaining of some urinary frequency. Her urine culture grew out Enterococcus. She was initiated on IV antibiotics. The initial plan was to have her transferred to [place] today for pacemaker placement. However, given her UTI, she will be started on p.o. amoxicillin for 4 more days, and follow up for urine culture 3 days after finishing her antibiotic. Then, cardiology will make a referral to electrophysiology service for permanent pacemaker implantation. She is stable for discharge home today. VITAL SIGNS: Temperature 97.3 degrees, heart rate 62, blood pressure 131/59, and O2 is 97% on room air. DISCHARGE DIET: Healthy heart. DISCHARGE MEDICATIONS: 1. Coumadin 2.5 mg p.o. at bedtime. 2. Pravastatin sodium 40 mg p.o. at bedtime. 3. Vitamin D3 1 tab p.o. daily. 4. Cymbalta 90 mg p.o. daily. 5. Glimepiride 2 mg p.o. daily. 6. Letrozole 2.5 mg p.o. daily. 7. Lyrica 225 mg p.o. b.i.d. 8. Pramipoxole 1 mg p.o. t.i.d. 9. Ampicillin 500 mg p.o. q.8 hours. 10. Metoprolol 25 mg p.o. q.12 hours. 11. Flecainide 50 mg p.o. b.i.d. FOLLOWUP: Ms. Daigle is being discharged home with p.o. antibiotics for the next 4 days. She will have a repeat culture in 3 days. Cardiology will set her up for an appointment with the EP for her permanent pacemaker implantation. She is to return to the ED or call 911 for any worsening of symptoms. Dictated by ADRIENNE Myers for Dinesh Matias MD cc: MD Bryan Mccullough MD Charles D Coffey, MD I have seen and examined Ms Daigle today. She feels better. Currently asymptomatic. I have reviewed her medication and reconciled them. Ms Daigle is discharge today home with cardiology follow up All discharge instructions discussed with her. at bed side at the time of encounter and they both voice understanding. I agree with the above discharge summary. LESLIE
--- NOTE | 2018-08-22 14:42 | Carotid Study ---
DATE: 08/19/2018 PROCEDURE: Bilateral carotid duplex imaging. REQUESTING PHYSICIAN: ADRIENNE Riddle. INTERPRETING PHYSICIAN: Tiffany Stoner MD. TECH: Darshan. INDICATIONS: Near syncope. OBSERVED DATA RIGHT LEFT Brachial Blood Pressure Carotid Pulse Bruits: Carotid/Sub DIAGRAM OF ULTRASOUND IMAGING R L RIGHT INT EXT INT EXT LEFT Eddie (cm/s) Eddie (cm/s) Subclavian 126/17 Subclavian 121/3 CCA Proximal 50/6 CCA Proximal 109/10 CCA Distal 89/14 CCA Distal 117/11 Bulb 57/11 Bulb 101/16 ICA Proximal 49/10 ICA Proximal 80/20 ICA Mid 55/12 ICA Mid 94/16 ICA Distal 78/22 ICA Distal 81/22 ECA 77/7 ECA 91/11 Vertebral 58/9 A Vertebral 68/13 A ICA/CCA Ratio 0.87 ICA/CCA Ratio 0.81 % Stenosis 0-39% % Stenosis 0-39% FINDINGS: No significant atherosclerotic change is noted in the right. In the left, there is a focal calcified plaque at the bulb and internal carotid artery junction that does not cause elevation of velocities or turbulent flow. This would correlate to a mild stenosis. PHYSICIAN INTERPRETATION: Mild stenosis in the left carotid artery system with antegrade vertebrals bilaterally. cc: MD Bertha Ford CRNP
== END 2018-08-22 12:25 | disposition home or self-care (01) | DRG 309 ==
LOC: ED 11:01 → SUATTDRO 13:37 → 3S 13:37
PROVIDERS: ATTEND Internal Medicine
CPT/HCPCS: 71010; 71045; 80048; 80053; 80162; 81001; 82550; 82948; 83036; 83735; 83880; 84436; 84443; 84484; 85025; 85610; 85730; 86140; 87077; 87088; 87186; 93005; 93010; 93306; 93880; 99285; A9270; C8929; J7030; Q9957; XXXXX